=== PATIENT | male | born 1960 | race Caucasian/White ===

== ENCOUNTER → 2019-09-26 | Day surgery (SDC) | payer BC ==
[2019-09-25 08:32] VITALS: BMI 34.7
[~2019-09-26] MED LIST: LACTATED RINGERS 1,000 ML IV SCH; LIDOCAINE 1% (10MG/ML) FOR IV START INTRADERMA PRN; PROPOFOL 10 MG/ML 20 ML VIAL IV ONE
[2019-09-26 12:08] VITALS: TEMP 98.3
--- NOTE | 2019-09-26 13:27 | P.GSHP ---
History of Present Illness H&P Date: 09/26/19 Chief Complaint: Screening colonoscopy This 59-year-old male penis today for screening colonoscopy. Patient denies any significant GI complaints. Past Medical History Past Medical History: Cancer, COPD, Hyperlipidemia Additional Past Medical History / Comment(s): seasonal allergies. RBBB. skin cancer History of Any Multi-Drug Resistant Organisms: None Reported Past Surgical History: Tonsillectomy Additional Past Surgical History / Comment(s): colonoscopy. squamous cell skin cancer. skin grafting d/t novak Past Anesthesia/Blood Transfusion Reactions: Motion Sickness Additional Past Anesthesia/Blood Transfusion Reaction / Comment(s): one episode after skin graft slow to come out of anesthesia Smoking Status: Never smoker Medications and Allergies Home Medications Medication Instructions Recorded Confirmed Type Albuterol Sulfate [Proair Hfa] 1 - 2 puff INHALATION Q6HR PRN 09/25/19 09/26/19 History Allopurinol [Zyloprim] 300 mg PO DAILY 09/25/19 09/26/19 History Aspirin [Adult Low Dose Aspirin EC] 81 mg PO DAILY 09/25/19 09/26/19 History Ergocalciferol [Vitamin D2] 50,000 unit PO TH 09/25/19 09/26/19 History Fexofenadine HCl [Rosa Allergy] 180 mg PO DAILY 09/25/19 09/26/19 History Fluticasone/Vilanterol [Breo 1 inhalation PO Q24HR 09/25/19 09/26/19 History Ellipta 100-25 Mcg Inhaler] Meloxicam 15 mg PO DAILY 09/25/19 09/26/19 History Rosuvastatin Calcium 10 mg PO DAILY 09/25/19 09/26/19 History Allergies Allergy/AdvReac Type Severity Reaction Status Date / Time meperidine [From Demerol] Allergy excitabilit Verified 09/26/19 12:02 y Surgical - Exam Vital Signs Temp Pulse Resp BP Pulse Ox 98.3 F 102 H 18 163/100 96 09/26/19 12:09/26/19 12:06 09/26/19 12:06 09/26/19 12:09/26/19 12:06 - General well developed, well nourished, no distress - Eyes PERRL - ENT normal pinna - Neck no masses - Respiratory normal expansion - Cardiovascular Rhythm: regular - Abdomen Abdomen: soft, non tender Assessment and Plan Assessment: We'll perform screening colonoscopy.
--- NOTE | 2019-09-26 13:42 | P.OP ---
Date of Procedure: 09/26/19 Preoperative Diagnosis: Screening colonoscopy Postoperative Diagnosis: Diverticulosis Procedure(s) Performed: Colonoscopy Anesthesia: MAC Surgeon: Kevon Garcia Pathology: none sent Condition: stable Disposition: PACU Description of Procedure: The patient's placed on the endoscopy table in the lateral position. He received IV sedation. Digital rectal exam was performed which revealed no rebound. The flexible colonoscope was then placed patient anus and passed throughout the entire colon. The ileocecal valve was visualized. Cecum, ascending and transverse colon appeared normal. In the descending; was moderate diverticular changes. Scope was then brought back the rectum and this appeared normal. Scope was withdrawn for patient.
[2019-09-26 14:36] VITALS: BP 128/77; PULSE 88; RESP 18
== END ==
LOC: ORWHC2ENDO 11:24
PROVIDERS: ATTEND Surgery
DX: Z12.11 Encounter for screening for malignant neoplasm of colon (principal); K57.30 Diverticulosis of large intestine without perforation or abscess without bleeding; I45.10 Unspecified right bundle-branch block; E78.5 Hyperlipidemia, unspecified; J44.9 Chronic obstructive pulmonary disease, unspecified; J30.2 Other seasonal allergic rhinitis; Z88.5 Allergy status to narcotic agent; Z85.828 Personal history of other malignant neoplasm of skin; Z79.51 Long term (current) use of inhaled steroids; Z79.82 Long term (current) use of aspirin; Z79.899 Other long term (current) drug therapy; Z90.89 Acquired absence of other organs; Z98.890 Other specified postprocedural states
CPT/HCPCS: G0121; J2704; 45378